=== PATIENT | female | born 1990 | race African-American/Black ===

== ENCOUNTER 2016-09-20 11:03 | Emergency (ER) | payer MEDICAID, OTHER ==
[~2016-09-20] VITALS: Ht 167.6 cm; Wt 68.0 kg
[2016-09-20 11:13] VITALS: BP 107/57; PULSE 90; RESP 18; O2SAT 99
--- NOTE | 2016-09-20 11:20 | PD ---
HPI Chief Complaint: Pain: Acute or Chronic Time Seen by Provider: 11:20 Travel History International Travel<30 days: No Contact w/Intl Traveler<30days: No Traveled to known affect area: No History of Present Illness HPI 25-year-old Afro[place] female presents emergency Department with 1 month history of hemorrhoid. Patient states she's been utilizing [id number] medications and home remedies without improvement. Patient states occasional bleeding and intermittent burning and pain. Patient states the pain is worse in the past couple of days but no bleeding since 2 days ago. She denies any other symptoms. No previous history of hemorrhoids prior to this. She has no fever chills or other constitutional symptoms. Pain is currently 4/10. She has no known drug allergies. PFSH Past Medical History ?: Not LMP: a week ago Social History Alcohol Use: No Tobacco Use: No Substance Use: Yes (MARIJUANA) Allergies-Medications (Allergen,Severity, Reaction): Coded Allergies: No Known Allergies (Unverified , 11/28/15) Reported Meds & Prescriptions Reported Meds & Active Scripts Active No Active Prescriptions or Reported Medications Review of Systems Except as stated in HPI: all other systems reviewed are Neg General / Constitutional: No: Fever Eyes: No: Visual changes HENT: No: Headaches Cardiovascular: No: Chest Pain or Discomfort Respiratory: No: Shortness of Breath Gastrointestinal: No: Abdominal Pain Genitourinary: No: Dysuria Musculoskeletal: No: Pain Skin: No Rash Neurologic: No: Weakness Psychiatric: No: Depression Endocrine: No: Polydipsia Hematologic/Lymphatic: No: Easy Bruising Physical Exam Narrative GENERAL: Patient is a acute distress. SKIN: Warm and dry. Normal color. Normal turgor. HEAD: Atraumatic. Normocephalic. EYES: Pupils equal and round. No scleral icterus. No injection or drainage. ENT: No nasal bleeding or discharge. Mucous membranes pink and moist. NECK: Trachea midline. No JVD. CARDIOVASCULAR: Regular rate and rhythm. RESPIRATORY: No accessory muscle use. Clear to auscultation. Breath sounds equal bilaterally. GASTROINTESTINAL: Abdomen soft, non-tender, nondistended. Hepatic and splenic margins not palpable. RECTAL AREA: Rectum was examined with nursing staff present patient had a skin tag at the 6 o'clock position without significant erythema or signs of thrombosis. It is moderately tender and swollen. There is no sign of rectal fissure. There is no active bleeding. Internal exam was not performed. MUSCULOSKELETAL: Extremities without clubbing, cyanosis, or edema. No obvious deformities. NEUROLOGICAL: Awake and alert. No obvious cranial nerve deficits. Motor grossly within normal limits. Five out of 5 muscle strength in the arms and legs. Normal speech. PSYCHIATRIC: Appropriate mood and affect; insight and judgment normal. Data Data Last Documented VS Vital Signs Date Time Temp Pulse Resp B/P Pulse Ox O2 Delivery O2 Flow Rate FiO2 09/20/16 11:13 90 18 107/57 99 MDM Medical Decision Making Medical Screen Exam Complete: Yes Emergency Medical Condition: Yes Differential Diagnosis Rectal pain. Rectal bleeding. Hemorrhoid. Narrative Course Patient is medically stable at time of exam. Patient is felt to be stable and does not need hemorrhoidectomy or evacuation of thrombus. Patiently treated conservatively with a new course suppositories 1 [place] 3 times a day for the next 7 days. Patient is to follow-up with local primary care physician or manager mortgage symptoms continue. Diagnosis Primary Impression: Hemorrhoid Qualified Code: K64.1 - Second degree hemorrhoids Referrals: [facility] Primary Care Physician Patient Instructions: General Instructions, Hemorrhoids (ED) Additional Instructions: Patient is felt to be stable and does not need hemorrhoidectomy or evacuation of thrombus. Patiently treated conservatively with a new course suppositories 1 [place] 3 times a day for the next 7 days. Patient is to follow-up with local primary care physician or manager mortgage symptoms continue. Med/Other Pt SpecificInfo: Prescription(s) given Scripts Hydrocortisone Acetate Supp (Anucort-Hc Supp)25 Mg Supp25 Mg RECTAL TID 7 Days Ref 0 Prov:Jaz Barragan MD 09/20/16 Disposition: 01 DISCHARGE HOME Condition: Stable Bhavin Jones Sep 20, 2016 11:20
[2016-09-20] MEDS ORDERED: ANUC25SU RECTAL (11:29)
== END 2016-09-20 12:13 | disposition home or self-care (01) ==
LOC: NEPE 11:03
DX: K64.9 Unspecified hemorrhoids (principal)
CPT/HCPCS: 99282

== ENCOUNTER 2016-12-27 18:42 | Emergency (ER) | payer MEDICAID, OTHER ==
[~2016-12-27] VITALS: Ht 152.4 cm; Wt 70.0 kg
[~2016-12-27 18:42] MED LIST: ANUC25SU RECTAL
[2016-12-27 18:43] VITALS: BP 123/73; PULSE 90; RESP 20; TEMP 98.9; O2SAT 100
== END 2016-12-27 22:37 | disposition left against medical advice (07) ==
LOC: NED 18:42
DX: N94.9 Unspecified condition associated with female genital organs and menstrual cycle (principal)

== ENCOUNTER 2017-01-05 16:24 | Emergency (ER) | payer OTHER, MEDICAID ==
[~2017-01-05] VITALS: Ht 160 cm; Wt 68.0 kg
[2017-01-05 16:26] VITALS: BP 122/71; PULSE 80; RESP 20; TEMP 98.9; O2SAT 100
--- NOTE | 2017-01-05 17:08 | PD ---
HPI Chief Complaint: Backend Python Developer Problem/Complaint Time Seen by Provider: 17:08 Travel History International Travel<30 days: No Contact w/Intl Traveler<30days: No Traveled to known affect area: No History of Present Illness HPI 26-year-old female came to the emergency room for vaginal discharge that spent going on for past 1 month. Patient says she's had unprotected sex and would like to be checked for all kind of STDs including HIV. She says her discharge smells foul. She has been trying things at home to take care of it but is not getting better. She has an appointment with [facility] sometime in February. Vital signs were stable. Patient did not appear to be in any significant discomfort. She has history of STD about 7 years ago but cannot remember which one. However she said she did finish the treatment course that she was given. [facility] Past Medical History Narrative Medical List of her past medical, surgical, social and family history was reviewed from the nursing note. ?: Not Social History Alcohol Use: No Tobacco Use: No Substance Use: Yes (MARIJUANA) Allergies-Medications (Allergen,Severity, Reaction): Coded Allergies: No Known Allergies (Unverified , 01/05/17) Comments No known drug allergies. Reported Meds & Prescriptions Reported Meds & Active Scripts Active No Active Prescriptions or Reported Medications Narrative Medication List of her home medications reviewed from the nursing note. Review of Systems Except as stated in HPI: all other systems reviewed are Neg Physical Exam Narrative GENERAL: Awake, alert, no obvious distress SKIN: Focused skin assessment warm/dry. HEAD: Atraumatic. Normocephalic. EYES: Pupils equal and round. No scleral icterus. No injection or drainage. ENT: No nasal bleeding or discharge. Mucous membranes pink and moist. NECK: Trachea midline. No JVD. CARDIOVASCULAR: Regular rate and rhythm. No murmur appreciated. RESPIRATORY: No accessory muscle use. Clear to auscultation. Breath sounds equal bilaterally. GASTROINTESTINAL: Abdomen soft, non-tender, nondistended. Hepatic and splenic margins not palpable. : Normal external inspection. Speculum exam showed some discharge that did not appear to be grossly abnormal. There were to yellowish lesions on the cervix at 5 o'clock position each circular and 1 mm diameter. No CMT or adnexal tenderness MUSCULOSKELETAL: No obvious deformities. No clubbing. No cyanosis. No edema. NEUROLOGICAL: Awake and alert. No obvious cranial nerve deficits. Motor grossly within normal limits. Normal speech. PSYCHIATRIC: Appropriate mood and affect; insight and judgment normal. Data Data Last Documented VS Vital Signs Date Time Temp Pulse Resp B/P Pulse Ox O2 Delivery O2 Flow Rate FiO2 01/05/17 17:06 18 01/05/17 16:26 98.9 80 122/71 100 Room Air Orders Gc And Chlamydia Pcr (01/05/17 17:25) Wet Prep Profile (01/05/17 17:25) Ua Includes Microscopic (01/05/17 17:25) Ed Urine Pregnancytest Poc (01/05/17 17:25) Labs Laboratory Tests Test 01/05/17 17:39 Urine Color YELLOW Urine Turbidity CLEAR Urine pH 7.0 Urine Specific Doss 1.028 Urine Protein TRACE mg/dL Urine Glucose (UA) NEG mg/dL Urine Ketones NEG mg/dL Urine Occult Blood NEG Urine Nitrite NEG Urine Bilirubin NEG Urine Urobilinogen 2.0 MG/DL Urine Leukocyte Esterase NEG Urine RBC LESS THAN 1 /hpf Urine WBC 1 /hpf Urine Squamous Epithelial 2 /hpf Cells Urine Mucus FEW /lpf Clue Cells (Wet Prep) NONE SEEN Vaginal Trichomonas (Wet Prep) NONE SEEN Vaginal Yeast (Wet Prep) NONE SEEN MDM Medical Decision Making Medical Screen Exam Complete: Yes Emergency Medical Condition: Yes Medical Record Reviewed: Yes Differential Diagnosis STD, cervicitis, PID, normal vaginal discharge Narrative Course 5:46 PM awaiting for the wet mount. I told the patient if the wet mount was negative I will discharge her home without any treatment. GC and chlamydia are pending which would take a few hours to a day to come back. However upon my exam my clinical gestalt is that patient does not have STD. I also let her know that in order to be tested for HIV she would have to go [facility] and she understands. 6:39 PM the UA and wet mount were negative. However I was just told by the nurse that patient left because she couldn't wait since she had to be somewhere. Any case I was not planning to start her on antibiotic if these tests were negative. If the GC and chlamydia are positive then she'll be called back for treatment. Procedures EKG Prior to Arrival: No Diagnosis Primary Impression: Vaginal discharge Referrals: Primary Care Physician Additional Instructions: Please follow-up with your [facility]. If the GC and/or chlamydia comes back positive we will call you back. Scripts No Active Prescriptions or Reported Meds Disposition: 01 DISCHARGE HOME Condition: Stable Yisel Do MD Jan 05, 2017 17:08 Yisel Do MD Jan 05, 2017 17:08
[2017-01-05 18:10] LABS: BLOOD, URINE NEG (NEG); GLUCOSE,URINE NEG (NEG); KETONE, URINE NEG (NEG); MUCUS URINE FEW /lpf (OCC); NITRITE,URINE NEG (NEG); SQUAMOUS EPITHELIAL CELL URINE 2 /hpf (0-5); URINE COLOR YELLOW (YELLW/STRAW)
== END 2017-01-05 18:58 | disposition home or self-care (01) ==
LOC: NEPD 16:24
DX: N89.8 Other specified noninflammatory disorders of vagina (principal)
CPT/HCPCS: 81001; 84703; 87210; 99283